=== PATIENT | female | born 1970 | race Two or more races ===

== ENCOUNTER 2019-10-25 10:02 | Emergency (ER) | payer SELFPAY ==
[~2019-10-25] VITALS: Ht 167.6 cm; Wt 99.8 kg
[2019-10-25 10:08] VITALS: BP 139/89
[2019-10-25 12:59] VITALS: BP 139/89
--- NOTE | 2019-10-25 12:59 | Emergency Room Report ---
History of Present Illness General Chief Complaint: Flu Like Symptoms Source: Patient Present Illness HPI Patient is a 49-year-old female presents after increased cough and nasal congestion. Patient states that she has been having increased nasal congestion and nonproductive cough. Denies any difficulty with breathing. Denies any significant fever. Reports having minimal sore throat. Cough is intermittent. She reports wanting testing for coronavirus. She reportedly had been placed off of work. She had no known sick contacts. No recent travel. Had not been vomiting or having any diarrhea. Denies any chest discomfort. COVID-19 risk:Travel to affect: No Has patient experienced hartmann: No Allergies: Coded Allergies: No Known Allergies (Unverified , 10/25/19) Patient History Past Medical History: see triage record Now: No Reviewed Nursing Documentation: PMH: Agreed; PSxH: Agreed Nursing Documentation-PMH Past Medical History: No History, Except For Review of Systems All Other Systems: negative except mentioned in HPI Physical Exam Vital Signs Date Time Temp Pulse Resp B/P (MAP) Pulse Ox O2 Delivery O2 Flow Rate FiO2 10/25/19 10:08 98.1 63 17 139/89 97 Room Air Sp02 EP Interpretation: reviewed, normal General Appearance: normal inspection, well appearing, no apparent distress, alert, GCS 15 Head: atraumatic ENT: normal ENT inspection, hearing grossly normal, normal voice Neck: normal inspection, full range of motion, supple, no bony tend Respiratory: normal inspection, lungs clear, normal breath sounds, no respiratory distress, no retraction, no wheezing Cardiovascular #1: regular rate, rhythm, no edema Gastrointestinal: normal inspection, normal bowel sounds, non tender, soft, no guarding, no hernia Genitourinary: no CVA tenderness Musculoskeletal: normal inspection, back normal, normal range of motion Neurologic: alert, motor strength/tone normal, core cleaner III-XII nml as tested, oriented x3, responsive, speech normal, normal inspection Psychiatric: normal inspection, judgement/insight normal, mood/affect normal Medical Decision Making Diagnostic Impression: Primary Impression: Viral respiratory infection ER Course Patient presented for increased cough. Differential diagnosis include was not limited to viral upper respiratory infection, sinusitis, pharyngitis, pneumonia among others. Patient has a benign exam and does not appear to require any imaging or laboratory testing at this time. Patient has normal oxygen saturation as well as clear lung sounds. Influenza study was ordered and was negative. Patient has no known sick contacts with Covid 19. Patient does not have any recent travel history. Patient nevertheless has potential for infection and was advised to self isolate and quarantine. She was advised to return if worse or any concerns. She was advised to remain off work. The patient is advised to follow up with primary care doctor. Patient is advised to return if any worsening condition or if any changes in status that are concerning. This report is dictated with [employer] developer software which may occasionally lead to discrepancies related to use of this software. Last Vital Signs Date Time Temp Pulse Resp B/P (MAP) Pulse Ox O2 Delivery O2 Flow Rate FiO2 10/25/19 10:42 63 17 Room Air 10/25/19 10:08 98.1 139/89 (106) 97 Status: improved Disposition: HOME, SELF-CARE Condition: Stable Departure Forms: Return to Work Return to Work in (Days): 10 Patient Instructions: Viral Respiratory Infection Chun Mazariegos MD Oct 25, 2019 12:59
== END 2019-10-25 12:59 | disposition home or self-care (01) ==
LOC: EMR 10:30
DX: J06.9 Acute upper respiratory infection, unspecified (principal)
CPT/HCPCS: 86710; 99281